=== PATIENT | male | born 1965 | race Caucasian/White ===

== ENCOUNTER → 2019-12-31 08:51 | Outpatient (CLI) | payer BC, SELFPAY ==
--- NOTE | 2019-12-31 09:00 | US_ITS ---
PROCEDURE: US ABDOMEN LIMITED CLINICAL INDICATION: ABN RESULTS OF LIVER FUNCTION STUDIES, DIARRHEA, CIRRHOSIS COMPARISON: No exams were available for comparison FINDINGS: PANCREAS: Unremarkable. No obvious mass or abnormal fluid collection. No ductal dilatation LIVER: No focal liver lesions demonstrated. There is coarse heterogeneous echogenicity of the liver. No intrahepatic biliary ductal dilatation evident. There is appropriate direction of blood flow within a non dilated portal vein RIGHT KIDNEY: Hyperechoic areas present in the lower pole of the right kidney suggesting a renal stone. CT may confirm. GALLBLADDER: No gallstones, gallbladder wall thickening, pericholecystic fluid, or biliary dilatation. IMPRESSION: There is mild heterogeneous echogenicity of the liver which may be seen with cirrhosis. There is appropriate direction of blood flow within the portal vein without portal dilatation. Dictated by: Derrell Juarez MD 12/31/2019 12:49 Derrell Juarez MD in [facility] 12/31/2019 12:49
== END ==
PROVIDERS: Referring Provider Nurse Practitioner Family; Visit Provider Nurse Practitioner Family
DX: R94.5 Abnormal results of liver function studies (principal); R19.7 Diarrhea, unspecified; K74.60 Unspecified cirrhosis of liver
CPT/HCPCS: 76705

== ENCOUNTER → 2020-01-01 12:14 | Outpatient (CLI) | payer BC, SELFPAY ==
[2020-01-01 13:09] LABS: Basophils % 0.5 % (0.1-2.0); Eosinophils # 0.2 K/mm3 (0.0-0.4); Eosinophils % 3.3 % (0.1-12.0); Hematocrit 46.9 % (42.0-52.0); Hemoglobin 15.7 g/dL (14.1-18.0); Lymphocytes # 1.6 K/mm3 (0.7-4.5); Lymphocytes % 27.2 % (10-50); Mean Corpuscular HGB Conc 33.5 g/dL (31.8-35.4); Mean Corpuscular Volume 95.6 fl (80-94); Mean Platelet Volume 8.9 fl (7.4-10.4); Monocytes # 0.5 K/mm3 (0.1-1.0); Monocytes % 7.9 % (1.7-9.3); Neutrophils # 3.7 K/mm3 (1.8-7.8); Neutrophils % 61.1 % (37.0-80.0); Platelet Count 179 K/mm3 (142-424); Red Cell Distribution Width 12.2 % (11.5-17.5)
[2020-01-01 14:28] LABS: Chloride 105 mmol/L (98-107); Potassium 4.5 mmoL/L (3.5-5.1); Sodium 140 mmol/L (136-145)
[2020-01-01 14:30] LABS: Blood Urea Nitrogen 13 mg/dl (9-20); Estimated Glomerular Filt Rate 89 ml/min (>60); GFR (African American) 107 ML/MIN (>60)
[2020-01-01 14:31] LABS: Alanine Aminotransferase 33 U/L (12-78); Albumin Level 4.6 g/dl (3.5-5.0); Albumin/Globulin Ratio 1.8 (1.1-1.8); Alkaline Phosphatase 73 U/L (38-126); Anion Gap 12.5 mEq/L (5-15); Aspartate Amino Transferase 29 U/L (17-59); Bilirubin,Total 0.8 mg/dl (0.2-1.3); Calcium 9.6 mg/dl (8.4-10.2); Carbon Dioxide 27 mmol/L (22.0-30.0); Globulin 2.6 g/dL (1.3-3.2); Glucose 93 mg/dl (74-100); Iron 108 ug/dL (49-181); Total Protein,Serum 7.2 g/dl (6.3-8.2)
[2020-01-01 14:37] LABS: INR 1.03 (0.9-1.1); Prothrombin Time 11.4 seconds (9.4-11.8)
[2020-01-01 14:40] LABS: Total Iron Binding Capacity 365 ug/dL (261-462)
[2020-01-01 15:07] LABS: Ferritin 153 ng/ml (17.9-464)
[2020-01-02 10:59] LABS: Ceruloplasmin 20.2 mg/dL (16.0-31.0)
[2020-01-02 12:48] LABS: Hep A Ab, IgM Negative (Negative); Hepatitis B Core Antibody IgM Negative (Negative); Hepatitis B Surface Antigen Negative (Negative)
[2020-01-02 14:57] LABS: Hepatitis C Antibody <0.1 s/co ratio (0.0-0.9); Liver-Kidney Microsomal Ab 1.9 Units (0.0-20.0)
[2020-01-02 15:25] LABS: Immunoglobulin A, Qn 246 mg/dL (90-386); Immunoglobulin G, Qn 1079 mg/dL (603-1613); Immunoglobulin M, Qn 56 mg/dL (20-172)
[2020-01-02 16:12] LABS: Angiotensin Converting Enzyme 39 U/L (14-82)
[2020-01-02 17:58] LABS: Actin (Smooth Muscle) Antibody 7 Units (0-19); Deamidated Gliadin Abs, IgA 6 units (0-19); Deamidated Gliadin Abs, IgG 16 units (0-19); Endomysial IgA Antibody Negative (Negative); Mitochondrial (M2) Antibody <20.0 Units (0.0-20.0); Tissue Transglutaminase IgA Ab <2 U/mL (0-3); Tissue Transglutaminase IgG Ab 4 U/mL (0-5)
[2020-01-03 13:27] LABS: Reticulin IgA Antibody Negative titer (Neg:<1:2.5)
[2020-01-04 07:32] LABS: ALT (SGPT) P5P 33 IU/L (0-55); AST (SGOT) P5P 25 IU/L (0-40); Alpha 2-Macroglobulins, Qn 229 mg/dL (110-276); Apolipoprotein A-1 104 mg/dL (101-178); Bilirubin, Total 0.5 mg/dL (0.0-1.2); Cholesterol, Total 172 mg/dL (100-199); Fibrosis Score 0.37 (0.00-0.21); Fibrosis Stage F1-F2 (.); GGT 21 IU/L (0-65); Glucose 84 mg/dL (65-99); Haptoglobin 115 mg/dL (29-370); Steatosis Score 0.54 (0.00-0.30); Triglycerides 159 mg/dL (0-149)
[2020-01-06 16:11] LABS: Alpha-1-Antitrypsin 121 mg/dL (101-187)
[2020-01-22 15:51] LABS: Antinuclear Antibodies (ANA) Positive
== END ==
PROVIDERS: Visit Provider Nurse Practitioner Family
DX: K76.0 Fatty (change of) liver, not elsewhere classified (principal)
CPT/HCPCS: 36415; 80053; 80074; 81256; 82103; 82104; 82164; 82390; 82728; 82784; 83516; 83540; 83550; 85025; 85610; 86038; 86255; 86256; 86334; 86376

== ENCOUNTER → 2020-10-26 14:46 | Outpatient (CLI) | payer BC, SELFPAY ==
[2020-10-26 15:16] LABS: Basophils % 0.4 % (0.1-2.0); Eosinophils # 0.2 K/mm3 (0.0-0.4); Eosinophils % 2.7 % (0.1-12.0); Hemoglobin 14.6 g/dL (14.1-18.0); Lymphocytes # 1.7 K/mm3 (0.7-4.5); Lymphocytes % 21.6 % (10-50); Mean Corpuscular HGB Conc 34.1 g/dL (31.8-35.4); Mean Corpuscular Hemoglobin 31.6 pg (27.0-31.2); Mean Corpuscular Volume 92.6 fl (80-94); Mean Platelet Volume 8.8 fl (7.4-10.4); Monocytes # 0.6 K/mm3 (0.1-1.0); Monocytes % 7.6 % (1.7-9.3); Neutrophils # 5.3 K/mm3 (1.8-7.8); Neutrophils % 67.7 % (37.0-80.0); Platelet Count 185 K/mm3 (142-424); Red Blood Count 4.64 M/mm3 (4.60-6.20); Red Cell Distribution Width 13.1 % (11.5-17.5); White Blood Count 7.9 K/mm3 (4.8-10.8)
[2020-10-26 16:55] LABS: Alanine Aminotransferase 19 U/L (12-78); Albumin Level 4.2 g/dl (3.5-5.0); Albumin/Globulin Ratio 1.6 (1.1-1.8); Alkaline Phosphatase 62 U/L (38-126); Anion Gap 13.8 mEq/L (5-15); Aspartate Amino Transferase 24 U/L (17-59); Bilirubin,Total 0.8 mg/dl (0.2-1.3); Blood Urea Nitrogen 20 mg/dl (9-20); Calcium 8.9 mg/dl (8.4-10.2); Carbon Dioxide 29 mmol/L (22.0-30.0); Chloride 103 mmol/L (98-107); Estimated Glomerular Filt Rate 89 ml/min (>60); GFR (African American) 107 ML/MIN (>60); Globulin 2.6 g/dL (1.3-3.2); Glucose 81 mg/dl (74-100); Potassium 4.8 mmoL/L (3.5-5.1); Sodium 141 mmol/L (136-145); Total Protein,Serum 6.8 g/dl (6.3-8.2)
== END ==
PROVIDERS: Visit Provider Nurse Practitioner Family
DX: K75.81 Nonalcoholic steatohepatitis (NASH) (principal)
CPT/HCPCS: 36415; 80053; 85025